=== PATIENT | male | born 1995 | race Caucasian/White ===

== ENCOUNTER 2021-02-14 07:22 | Day surgery (SDC) | payer OTHER ==
[~2021-02-14] VITALS: Ht 177.8 cm; Wt 84.2 kg
[2021-02-14] MEDS ORDERED: ADVIL200 MG PO (08:07)
[2021-02-14 08:08] VITALS: BP 140/83; PULSE 60; TEMP 98
[2021-02-14 09:00] VITALS: BP 135/85; PULSE 60
--- NOTE | 2021-02-14 09:00 | NUR ---
PT RETURNS TO ENDO SUITE BAY 3 VIA CART ACCOMPANIED BY CINDA VALENTINO. PT AMBULATES TO CHAIR WITH STANDBY ASSIST, GAIT STEADY. PT RESTING IN CHAIR. ABDOMEN SOFT, NON-TENDER. PT DENIES NAUSEA OR PAIN. PT'S MOTHER TO BEDSIDE. PT DENIES FURTHER NEEDS AT THIS TIME, CALL LIGHT IN REACH. IVF INFUSING.
--- NOTE | 2021-02-14 09:05 | NUR ---
DR. MADRIGAL IN TO DISCUSS PROCEDURE WITH PT AND MOTHER.
[2021-02-14] MEDS ORDERED: PRIL40 PO (09:14)
[2021-02-14 09:15] VITALS: BP 137/87; PULSE 76; TEMP 97.7
--- NOTE | 2021-02-14 09:15 | NUR ---
PT RESTING IN CHAIR. BLUEBERRY MUFFIN AND WATER PROVIDED. PT DENIES FURTHER NEEDS OR COMPLAINTS. MOTHER AT BEDSIDE, CALL LIGHT IN REACH. IVF INFUSING. VITALS STABLE.
[2021-02-14 09:30] VITALS: BP 124/83; PULSE 71
--- NOTE | 2021-02-14 09:30 | NUR ---
PT RESTING IN CHAIR. VITALS STABLE. PT ATE ENTIRE BLUEBERRY MUFFIN AND DRANK WATER WITH NO ISSUES. DENIES NAUSEA OR PAIN. IV DISCONTINUED. PT CHANGED TO PEROSNAL CLOTHES.
--- NOTE | 2021-02-14 09:35 | NUR ---
DISCHARGE INSTRUCTIONS PROVIDED TO PT AND MOTHER. PT AND MOTHER VERBALIZE UNDERSTANDING, DENY FURTHER QUESTIONS OR COMPLAINTS.
--- NOTE | 2021-02-14 09:43 | NUR ---
PT DISCHARGED VIA WHEEL CHAIR TO PRIVATE VEHICLE DRIVEN BY PT'S MOTHER. PT'S BELONGINGS AND DISCHARGE PACKET SENT WITH PATIENT.
== END 2021-02-14 09:43 | disposition home or self-care (01) ==
LOC: SDCO 07:22
DX: K21.00 Gastro-esophageal reflux disease with esophagitis, without bleeding (principal); Z80.0 Family history of malignant neoplasm of digestive organs; Z88.0 Allergy status to penicillin; Z88.1 Allergy status to other antibiotic agents
CPT/HCPCS: J2704; J7120